=== PATIENT | female | born 1950 | race Caucasian/White ===

== ENCOUNTER 2021-09-24 17:41 | Inpatient (IN) | payer MEDICARE ==
[2021-09-24 18:46] LABS: #Basophils 0.1 thou/uL (0.0-0.2); #Eosinphils 0.4 thou/uL (0.0-0.7); #Lymphocytes 2.7 thou/uL (1.20-3.40); #Monocytes 0.5 thou/uL (0.11-0.59); #Neutrophils 6.2 thou/uL (1.40-6.50); %Basophils 0.7 % (0.0-1.0); %Eosinophils 3.9 % (0.0-10.0); %Lymphocytes 27.2 % (21.0-51.0); %Monocytes 4.9 % (0.0-10.0); %Neutrophils 63.4 % (42.0-75.0); Hemoglobin 16.1 g/dL (12.0-16.0); Mean Corpuscular HGB CONC 31.6 g/dL (32.0-36.0); Mean Corpuscular Hemoglobin 31.7 pg (27.0-31.0); Mean Platelet Volume 8.6 fL (7.4-10.4); Platelet Count 200 thou/uL (130-400); RBC Distribution Width 12.4 % (11.5-14.5); Red Blood Cell (RBC) Count 5.08 mill/uL (4.20-5.40); White Blood Cell (WBC) Count 9.8 thou/uL (4.8-10.8)
[2021-09-24 18:53] LABS: Bilirubin Negative (Negative); Blood, Urine 2+ (Negative); Clarity Extra Turbid (Clear); Glucose, Urine (Dipstick) Normal (Negative); Ketone, Urine Negative (Negative); Leukocyte 500 Leu/uL (Negative); Nitrite Negative (Negative); Protein, Urine (Dipstick) 70 mg/dL (Neg-Trace); RBC/HPF 0-3 HPF (0-3); Urobilinogen Normal mg/dL (Less than 2)
[2021-09-24 19:03] LABS: WBC/HPF 0-3 HPF (0-3)
[2021-09-24 19:04] LABS: Bacteria/HPF 4+ HPF (None Seen); Triple Phosphate Crystal Rare HPF (None Seen)
[2021-09-24 19:14] LABS: ALT (SGPT) 75 U/L (8-55); AST (SGOT) 39 U/L (5-34); Albumin 3.8 g/dL (3.4-4.8); Alkaline Phosphatase 135 U/L (40-110); Anion Gap 16 mmol/L (10-20); BUN (Urea Nitrogen) 28 mg/dL (9.8-20.1); Bilirubin, Total 0.7 mg/dL (0.2-1.2); Calc. Creatinine Clearance 0 mL/min (70-130); Calcium 9.4 mg/dL (7.8-10.44); Carbon Dioxide 21 mmol/L (23-31); Chloride 120 mmol/L (98-107); Estimated GFR 56; Globulin 3.4 g/dL (2.4-3.5); Glucose 107 mg/dL (83-110); Potassium 3.8 mmol/L (3.5-5.1); Protein, Total 7.2 g/dL (5.8-8.1); Sodium 153 mmol/L (136-145)
[2021-09-24] MEDS ORDERED: cefTRIAXone\\ROCEPHIN 1 GM VIAL ONE (19:36)
[2021-09-24] MEDS ORDERED: Acetaminophen 325 MG TAB PO PRN (20:55)
[2021-09-24] MEDS ORDERED: Mag-Al Plus 1200 MG/1200 MG/120 MG/30 ML UDCUP PO PRN (21:36)
[2021-09-24] MEDS ORDERED: Milk Of Magnesia 30 ML UDCUP PO PRN (21:36)
[2021-09-24] MEDS ORDERED: Loperamide HCl 2 MG CAP PO PRN (21:47)
[2021-09-24] MEDS: Famotidine 20 MG TAB PO SCH (22:13)
[2021-09-24 22:24] VITALS: BMI 23.5
[2021-09-25 04:13] LABS: #Eosinphils 0.4 thou/uL (0.0-0.7); #Lymphocytes 2.7 thou/uL (1.20-3.40); #Monocytes 0.7 thou/uL (0.11-0.59); #Neutrophils 5.2 thou/uL (1.40-6.50); %Basophils 0.3 % (0.0-1.0); %Eosinophils 4.3 % (0.0-10.0); %Lymphocytes 29.6 % (21.0-51.0); %Monocytes 7.8 % (0.0-10.0); %Neutrophils 58.1 % (42.0-75.0); Hemoglobin 14.1 g/dL (12.0-16.0); Mean Corpuscular HGB CONC 32.2 g/dL (32.0-36.0); Mean Corpuscular Hemoglobin 31.9 pg (27.0-31.0); Mean Corpuscular Volume 99.1 fL (78.0-98.0); Mean Platelet Volume 8.4 fL (7.4-10.4); Platelet Count 173 thou/uL (130-400); RBC Distribution Width 12.3 % (11.5-14.5); Red Blood Cell (RBC) Count 4.43 mill/uL (4.20-5.40)
[2021-09-25 04:32] LABS: Anion Gap 13 mmol/L (10-20); BUN (Urea Nitrogen) 24 mg/dL (9.8-20.1); Calc. Creatinine Clearance 58 mL/min (70-130); Calcium 8.9 mg/dL (7.8-10.44); Carbon Dioxide 25 mmol/L (23-31); Chloride 119 mmol/L (98-107); Estimated GFR 71; Glucose 100 mg/dL (83-110); Potassium 3.6 mmol/L (3.5-5.1); Sodium 153 mmol/L (136-145)
[2021-09-25] MEDS ORDERED: Dextrose 5% in Water 1,000 ML IV SCH (06:45)
[2021-09-25] MEDS ORDERED: Enoxaparin Sodium 30 MG/0.3 ML SYRINGE SC SCH (09:00)
[2021-09-25] MEDS: Benztropine 1 MG TAB PO SCH (09:49)
[2021-09-25] MEDS: Loratadine 10 MG TAB PO SCH (09:50)
[2021-09-25] MEDS: Ferrous Sulfate 325 MG TAB PO SCH ×2 (09:50→17:34)
[2021-09-25] MEDS: Atorvastatin Calcium 20 MG TAB PO SCH (09:50)
[2021-09-25] MEDS: OXcarbazepine 150 MG TAB PO SCH ×2 (09:50→21:46)
[2021-09-25] MEDS: Famotidine 20 MG TAB PO SCH ×2 (09:50→21:47)
[2021-09-25] MEDS: DULoxetine 60 MG CAP PO SCH (09:50)
[2021-09-25] MEDS: busPIRone HCl 10 MG TAB PO SCH ×3 (09:50→21:46)
[2021-09-25] MEDS: Timolol 0.5% Ophth Soln 5 ml Bottle EA EYE SCH ×2 (09:55→21:47)
[2021-09-25 10:27] LABS: Anion Gap 14 mmol/L (10-20); BUN (Urea Nitrogen) 21 mg/dL (9.8-20.1); Calc. Creatinine Clearance 60 mL/min (70-130); Calcium 8.8 mg/dL (7.8-10.44); Carbon Dioxide 22 mmol/L (23-31); Chloride 117 mmol/L (98-107); Estimated GFR 74; Glucose 89 mg/dL (83-110); Sodium 149 mmol/L (136-145)
[2021-09-25] MEDS: Dextrose 5% in Water 1,000 ML IV SCH ×2 (13:47→23:43)
[2021-09-25 15:46] LABS: Anion Gap 17 mmol/L (10-20); BUN (Urea Nitrogen) 20 mg/dL (9.8-20.1); Calc. Creatinine Clearance 63 mL/min (70-130); Calcium 8.8 mg/dL (7.8-10.44); Carbon Dioxide 18 mmol/L (23-31); Chloride 115 mmol/L (98-107); Estimated GFR 78; Glucose 88 mg/dL (83-110); Sodium 146 mmol/L (136-145)
[2021-09-25] MEDS ORDERED: cefTRIAXone\\ROCEPHIN 1 GM in Sodium Chloride 0.9% 100 ML IVPB SCH (21:00)
[2021-09-25] MEDS: cefTRIAXone\\ROCEPHIN 1 GM in Sodium Chloride 0.9% 100 ML IVPB SCH (21:34)
[2021-09-25] MEDS: RisperDAL Oral Solution 1 MG/ML UDCUP PO SCH (21:47)
[2021-09-25 22:16] LABS: Anion Gap 9 mmol/L (10-20); BUN (Urea Nitrogen) 21 mg/dL (9.8-20.1); Calc. Creatinine Clearance 57 mL/min (70-130); Calcium 8.8 mg/dL (7.8-10.44); Carbon Dioxide 27 mmol/L (23-31); Chloride 113 mmol/L (98-107); Estimated GFR 69; Glucose 93 mg/dL (83-110); Potassium 3.6 mmol/L (3.5-5.1); Sodium 145 mmol/L (136-145)
[2021-09-26 05:13] LABS: Anion Gap 11 mmol/L (10-20); BUN (Urea Nitrogen) 21 mg/dL (9.8-20.1); Calc. Creatinine Clearance 63 mL/min (70-130); Calcium 8.4 mg/dL (7.8-10.44); Carbon Dioxide 23 mmol/L (23-31); Chloride 111 mmol/L (98-107); Estimated GFR 78; Glucose 94 mg/dL (83-110); Potassium 3.2 mmol/L (3.5-5.1); Sodium 142 mmol/L (136-145)
[2021-09-26] MEDS: Ferrous Sulfate 325 MG TAB PO SCH ×2 (09:23→15:55)
[2021-09-26] MEDS: Atorvastatin Calcium 20 MG TAB PO SCH (09:24)
[2021-09-26] MEDS: busPIRone HCl 10 MG TAB PO SCH ×3 (09:25→20:23)
[2021-09-26] MEDS: Benztropine 1 MG TAB PO SCH (09:25)
[2021-09-26] MEDS: Famotidine 20 MG TAB PO SCH ×2 (09:26→20:23)
[2021-09-26] MEDS: DULoxetine 60 MG CAP PO SCH (09:26)
[2021-09-26] MEDS: Enoxaparin Sodium 40 MG/0.4 ML SYRINGE SC SCH (09:26)
[2021-09-26] MEDS: OXcarbazepine 150 MG TAB PO SCH ×2 (09:27→20:23)
[2021-09-26] MEDS: Loratadine 10 MG TAB PO SCH (09:27)
[2021-09-26] MEDS: Timolol 0.5% Ophth Soln 5 ml Bottle EA EYE SCH ×2 (09:32→20:34)
[2021-09-26] MEDS ORDERED: Potassium Chloride 20 MEQ TAB PO SCH (10:00)
[2021-09-26] MEDS: cefTRIAXone\\ROCEPHIN 1 GM in Sodium Chloride 0.9% 100 ML IVPB SCH (20:19)
[2021-09-26] MEDS: RisperDAL Oral Solution 1 MG/ML UDCUP PO SCH (20:22)
[2021-09-27 05:16] LABS: Anion Gap 13 mmol/L (10-20); BUN (Urea Nitrogen) 17 mg/dL (9.8-20.1); Calc. Creatinine Clearance 67 mL/min (70-130); Calcium 8.6 mg/dL (7.8-10.44); Carbon Dioxide 21 mmol/L (23-31); Chloride 112 mmol/L (98-107); Estimated GFR 84; Glucose 86 mg/dL (83-110); Potassium 3.7 mmol/L (3.5-5.1); Sodium 142 mmol/L (136-145)
[2021-09-27] MEDS: Timolol 0.5% Ophth Soln 5 ml Bottle EA EYE SCH ×2 (09:58→21:53)
[2021-09-27] MEDS: Loratadine 10 MG TAB PO SCH (09:58)
[2021-09-27] MEDS: Benztropine 1 MG TAB PO SCH (09:58)
[2021-09-27] MEDS: DULoxetine 60 MG CAP PO SCH (09:58)
[2021-09-27] MEDS: busPIRone HCl 10 MG TAB PO SCH ×3 (09:58→21:54)
[2021-09-27] MEDS: Ferrous Sulfate 325 MG TAB PO SCH ×2 (09:58→17:33)
[2021-09-27] MEDS: OXcarbazepine 150 MG TAB PO SCH ×2 (09:58→21:53)
[2021-09-27] MEDS: Atorvastatin Calcium 20 MG TAB PO SCH (09:58)
[2021-09-27] MEDS: Enoxaparin Sodium 40 MG/0.4 ML SYRINGE SC SCH (09:58)
[2021-09-27] MEDS ORDERED: Cefdinir 300 MG CAP PO SCH (10:30)
[2021-09-27] MEDS: Famotidine 20 MG TAB PO SCH ×2 (12:13→21:54)
[2021-09-27 14:29] LABS: #Eosinphils 0.3 thou/uL (0.0-0.7); #Lymphocytes 2.7 thou/uL (1.20-3.40); #Monocytes 0.5 thou/uL (0.11-0.59); #Neutrophils 3.7 thou/uL (1.40-6.50); %Basophils 0.5 % (0.0-1.0); %Eosinophils 3.6 % (0.0-10.0); %Neutrophils 51.9 % (42.0-75.0); Hemoglobin 13.1 g/dL (12.0-16.0); Mean Corpuscular Hemoglobin 32.7 pg (27.0-31.0); Mean Corpuscular Volume 99.1 fL (78.0-98.0); Mean Platelet Volume 8.9 fL (7.4-10.4); Platelet Count 154 thou/uL (130-400); RBC Distribution Width 12.2 % (11.5-14.5); Red Blood Cell (RBC) Count 4.02 mill/uL (4.20-5.40); White Blood Cell (WBC) Count 7.2 thou/uL (4.8-10.8)
[2021-09-27] MEDS: RisperDAL Oral Solution 1 MG/ML UDCUP PO SCH (21:55)
[2021-09-27] MEDS: Cefdinir 300 MG CAP PO SCH (21:57)
[2021-09-28 07:00] LABS: #Basophils 0.1 thou/uL (0.0-0.2); #Eosinphils 0.3 thou/uL (0.0-0.7); #Lymphocytes 2.3 thou/uL (1.20-3.40); #Monocytes 0.5 thou/uL (0.11-0.59); %Basophils 0.8 % (0.0-1.0); %Eosinophils 3.6 % (0.0-10.0); %Lymphocytes 32.5 % (21.0-51.0); %Monocytes 6.8 % (0.0-10.0); %Neutrophils 56.4 % (42.0-75.0); Hemoglobin 13.7 g/dL (12.0-16.0); Mean Corpuscular Hemoglobin 32.1 pg (27.0-31.0); Mean Corpuscular Volume 97.2 fL (78.0-98.0); Mean Platelet Volume 9.3 fL (7.4-10.4); Platelet Count 161 thou/uL (130-400); Red Blood Cell (RBC) Count 4.27 mill/uL (4.20-5.40); White Blood Cell (WBC) Count 7.1 thou/uL (4.8-10.8)
[2021-09-28 07:12] LABS: Anion Gap 12 mmol/L (10-20); BUN (Urea Nitrogen) 15 mg/dL (9.8-20.1); Calc. Creatinine Clearance 63 mL/min (70-130); Carbon Dioxide 23 mmol/L (23-31); Chloride 109 mmol/L (98-107); Estimated GFR 78; Glucose 84 mg/dL (83-110); Potassium 3.8 mmol/L (3.5-5.1); Sodium 140 mmol/L (136-145)
[2021-09-28] MEDS: Enoxaparin Sodium 40 MG/0.4 ML SYRINGE SC SCH (08:04)
[2021-09-28] MEDS: Timolol 0.5% Ophth Soln 5 ml Bottle EA EYE SCH ×2 (08:05→23:11)
[2021-09-28] MEDS: Famotidine 20 MG TAB PO SCH ×2 (08:06→23:10)
[2021-09-28] MEDS: DULoxetine 60 MG CAP PO SCH (08:06)
[2021-09-28] MEDS: Benztropine 1 MG TAB PO SCH (08:06)
[2021-09-28] MEDS: Atorvastatin Calcium 20 MG TAB PO SCH (08:06)
[2021-09-28] MEDS: Cefdinir 300 MG CAP PO SCH ×2 (08:06→23:10)
[2021-09-28] MEDS: Ferrous Sulfate 325 MG TAB PO SCH ×2 (08:07→16:01)
[2021-09-28] MEDS: Loratadine 10 MG TAB PO SCH (08:07)
[2021-09-28] MEDS: busPIRone HCl 10 MG TAB PO SCH ×3 (08:07→23:10)
[2021-09-28] MEDS ORDERED: Polyethylene Glycol 3350 17 GM Packet PO SCH (10:15)
[2021-09-28] MEDS: OXcarbazepine 150 MG TAB PO SCH ×2 (12:32→23:10)
[2021-09-28] MEDS: Docusate 100 MG CAP PO SCH (23:10)
[2021-09-28] MEDS: RisperDAL Oral Solution 1 MG/ML UDCUP PO SCH (23:11)
[2021-09-29 07:46] LABS: Anion Gap 14 mmol/L (10-20); BUN (Urea Nitrogen) 16 mg/dL (9.8-20.1); Calc. Creatinine Clearance 60 mL/min (70-130); Calcium 9.1 mg/dL (7.8-10.44); Carbon Dioxide 23 mmol/L (23-31); Chloride 108 mmol/L (98-107); Estimated GFR 74; Glucose 87 mg/dL (83-110); Potassium 3.7 mmol/L (3.5-5.1); Sodium 141 mmol/L (136-145)
[2021-09-29] MEDS: Docusate 100 MG CAP PO SCH (08:31)
[2021-09-29] MEDS: DULoxetine 60 MG CAP PO SCH (08:31)
[2021-09-29] MEDS: Enoxaparin Sodium 40 MG/0.4 ML SYRINGE SC SCH (08:31)
[2021-09-29] MEDS: Benztropine 1 MG TAB PO SCH (08:31)
[2021-09-29] MEDS: Ferrous Sulfate 325 MG TAB PO SCH ×2 (08:31→16:48)
[2021-09-29] MEDS: Cefdinir 300 MG CAP PO SCH (08:31)
[2021-09-29] MEDS: Famotidine 20 MG TAB PO SCH (08:31)
[2021-09-29] MEDS: Atorvastatin Calcium 20 MG TAB PO SCH (08:31)
[2021-09-29] MEDS: Loratadine 10 MG TAB PO SCH (08:31)
[2021-09-29] MEDS: busPIRone HCl 10 MG TAB PO SCH ×2 (08:31→15:03)
[2021-09-29] MEDS: Timolol 0.5% Ophth Soln 5 ml Bottle EA EYE SCH (08:32)
[2021-09-29] MEDS ORDERED: Polyethylene Glycol 3350 17 GM Packet PO SCH (09:00)
[2021-09-29] MEDS: OXcarbazepine 150 MG TAB PO SCH (12:30)
[2021-09-29 15:52] VITALS: BP 117/85; TEMP 97.7
== END 2021-09-29 17:05 | DRG 640 ==
LOC: ERS 17:41 → 2NO 20:15 → OBSVTOIN 20:15 → T4-A 09-27 20:14
PROVIDERS: ADMIT Student in an Organized Health Care Education/Training Program; ATTEND Student in an Organized Health Care Education/Training Program
PROC: 8E0ZXY6 Isolation (ICD-10-PCS; principal; 2021-09-24)
DX: E87.0 Hyperosmolality and hypernatremia (principal); L89.153 Pressure ulcer of sacral region, stage 3; U07.1 COVID-19; G93.41 Metabolic encephalopathy; N39.0 Urinary tract infection, site not specified; E87.2 Acidosis; G30.9 Alzheimer's disease, unspecified; L98.419 Non-pressure chronic ulcer of buttock with unspecified severity; F02.80 Dementia in other diseases classified elsewhere, unspecified severity, without behavioral disturbance, psychotic disturbance, mood disturbance, and anxiety; Z66 Do not resuscitate; E87.8 Other disorders of electrolyte and fluid balance, not elsewhere classified; E87.6 Hypokalemia; K59.00 Constipation, unspecified; Z88.2 Allergy status to sulfonamides; Z88.1 Allergy status to other antibiotic agents; Z88.8 Allergy status to other drugs, medicaments and biological substances; Z79.899 Other long term (current) drug therapy
CPT/HCPCS: 36415; 70450; 71045; 80048; 80053; 81003; 81015; 84443; 85025; 87040; 87077; 87086; 87186; 93005; 96374; J0696; J1650; J3490; J7070; U0003; U0005

== ENCOUNTER 2021-11-29 19:31 | Inpatient (IN) | payer MEDICARE ==
[~2021-11-29 19:31] MED LIST: Iopamidol-370 76% 500 ML 1 ML ONE
[2021-11-29 20:35] LABS: #Basophils 0.1 thou/uL (0.0-0.2); #Eosinphils 0.1 thou/uL (0.0-0.7); #Lymphocytes 2.1 thou/uL (1.20-3.40); #Monocytes 1.1 thou/uL (0.11-0.59); #Neutrophils 15.3 thou/uL (1.40-6.50); %Basophils 0.3 % (0.0-1.0); %Eosinophils 0.7 % (0.0-10.0); %Lymphocytes 11.2 % (21.0-51.0); %Neutrophils 81.8 % (42.0-75.0); Hemoglobin 15.9 g/dL (12.0-16.0); Mean Corpuscular HGB CONC 31.7 g/dL (32.0-36.0); Mean Corpuscular Hemoglobin 31.2 pg (27.0-31.0); Mean Corpuscular Volume 98.7 fL (78.0-98.0); Mean Platelet Volume 8.1 fL (7.4-10.4); Platelet Count 322 thou/uL (130-400); RBC Distribution Width 12.3 % (11.5-14.5); Red Blood Cell (RBC) Count 5.08 mill/uL (4.20-5.40); White Blood Cell (WBC) Count 18.7 thou/uL (4.8-10.8)
[2021-11-29 20:41] LABS: Bacteria/HPF 4+ HPF (None Seen); Bilirubin 1+ (Negative); Blood, Urine Negative (Negative); Clarity Turbid (Clear); Glucose, Urine (Dipstick) Normal (Negative); Ketone, Urine Trace mg/dL (Negative); Leukocyte 500 Leu/uL (Negative); Nitrite Negative (Negative); Protein, Urine (Dipstick) 200 mg/dL (Neg-Trace); RBC/HPF 0-3 HPF (0-3); Specific Gravity, Urine 1.031 (1.002-1.036); Squamous Epithelial None Seen HPF (0-3); WBC/HPF Greater than 50 HPF (0-3); pH, Urine 7.5 (5.0-9.0)
[2021-11-29 21:02] LABS: ALT (SGPT) 16 U/L (8-55); AST (SGOT) 16 U/L (5-34); Alkaline Phosphatase 117 U/L (40-110); Anion Gap 19 mmol/L (10-20); BUN (Urea Nitrogen) 35 mg/dL (9.8-20.1); Bilirubin, Total 0.7 mg/dL (0.2-1.2); Calc. Creatinine Clearance 0 mL/min (70-130); Calcium 9.6 mg/dL (7.8-10.44); Carbon Dioxide 20 mmol/L (23-31); Chloride 108 mmol/L (98-107); Estimated GFR 48; Globulin 3.5 g/dL (2.4-3.5); Glucose 135 mg/dL (83-110); Potassium 4.1 mmol/L (3.5-5.1); Protein, Total 7.5 g/dL (5.8-8.1); Sodium 143 mmol/L (136-145)
[2021-11-29] MEDS ORDERED: Piperacillin/Tazobactam 4.5 GM VIAL ONE (22:22)
[2021-11-29] MEDS ORDERED: Acetaminophen 650 MG Suppository PR PRN (23:32)
[2021-11-29] MEDS ORDERED: Ondansetron PF 4 MG/2 ML Vial IVP PRN (23:32)
[2021-11-29] MEDS ORDERED: Ondansetron ODT 4 MG TAB PO PRN (23:32)
[2021-11-30 00:15] LABS: Lactic Acid 1.8 mmol/L (0.5-2.2)
[2021-11-30 01:39] VITALS: BMI 20.1
[2021-11-30] MEDS: Sodium Chloride 0.9% 1,000 ML IV SCH ×2 (01:53→16:33)
[2021-11-30] MEDS: Piperacillin/Tazobactam 3.375 GM in Sodium Chloride 0.9% 100 ML IVPB SCH ×3 (04:34→20:43)
[2021-11-30 04:59] LABS: #Basophils 0.2 thou/uL (0.0-0.2); #Lymphocytes 1.5 thou/uL (1.20-3.40); #Neutrophils 12.1 thou/uL (1.40-6.50); %Basophils 1.1 % (0.0-1.0); %Eosinophils 0.2 % (0.0-10.0); %Lymphocytes 9.8 % (21.0-51.0); Hemoglobin 12.7 g/dL (12.0-16.0); Mean Corpuscular HGB CONC 32.6 g/dL (32.0-36.0); Mean Corpuscular Hemoglobin 31.4 pg (27.0-31.0); Mean Corpuscular Volume 96.4 fL (78.0-98.0); Mean Platelet Volume 10.5 fL (7.4-10.4); Platelet Count 205 thou/uL (130-400); RBC Distribution Width 15.4 % (11.5-14.5); Red Blood Cell (RBC) Count 4.03 mill/uL (4.20-5.40); White Blood Cell (WBC) Count 14.8 thou/uL (4.8-10.8)
[2021-11-30 05:13] LABS: Anion Gap 13 mmol/L (10-20); BUN (Urea Nitrogen) 29 mg/dL (9.8-20.1); Calc. Creatinine Clearance 52 mL/min (70-130); Carbon Dioxide 22 mmol/L (23-31); Chloride 113 mmol/L (98-107); Potassium 3.6 mmol/L (3.5-5.1); Sodium 144 mmol/L (136-145)
[2021-11-30 05:14] LABS: Calcium 8.7 mg/dL (7.8-10.44); Estimated GFR 73; Glucose 112 mg/dL (83-110)
[2021-11-30] MEDS: Enoxaparin Sodium 40 MG/0.4 ML SYRINGE SC SCH (09:45)
[2021-11-30] MEDS ORDERED: Non-Formulary Item 1 EACH (Clonazepam [Clonazepam] 0.25 MG Tab.Rapdis) PO PRN (10:32)
[2021-11-30] MEDS: Ferrous Sulfate 325 MG TAB PO SCH (16:53)
[2021-11-30] MEDS: busPIRone HCl 10 MG TAB PO SCH ×2 (16:53→20:47)
[2021-11-30] MEDS: Benztropine 1 MG TAB PO SCH (20:45)
[2021-11-30] MEDS: Acetaminophen 325 MG TAB PO PRN (20:47)
[2021-11-30] MEDS: Atorvastatin Calcium 20 MG TAB PO SCH (20:47)
[2021-11-30] MEDS: OXcarbazepine 150 MG TAB PO SCH (20:47)
[2021-11-30] MEDS: DULoxetine 60 MG CAP PO SCH (20:47)
[2021-12-01] MEDS: Sodium Chloride 0.9% 1,000 ML IV SCH (03:56)
[2021-12-01] MEDS: Piperacillin/Tazobactam 3.375 GM in Sodium Chloride 0.9% 100 ML IVPB SCH ×3 (03:56→20:34)
[2021-12-01 04:43] LABS: #Eosinphils 0.3 thou/uL (0.0-0.7); #Lymphocytes 1.7 thou/uL (1.20-3.40); #Monocytes 0.7 thou/uL (0.11-0.59); #Neutrophils 7.1 thou/uL (1.40-6.50); %Basophils 0.3 % (0.0-1.0); %Eosinophils 2.9 % (0.0-10.0); %Lymphocytes 17.3 % (21.0-51.0); %Monocytes 6.8 % (0.0-10.0); %Neutrophils 72.9 % (42.0-75.0); Hemoglobin 12.5 g/dL (12.0-16.0); Mean Corpuscular HGB CONC 32.8 g/dL (32.0-36.0); Mean Corpuscular Hemoglobin 31.9 pg (27.0-31.0); Mean Corpuscular Volume 97.3 fL (78.0-98.0); Mean Platelet Volume 7.9 fL (7.4-10.4); Platelet Count 184 thou/uL (130-400); RBC Distribution Width 12.1 % (11.5-14.5); Red Blood Cell (RBC) Count 3.92 mill/uL (4.20-5.40); White Blood Cell (WBC) Count 9.7 thou/uL (4.8-10.8)
[2021-12-01 05:10] LABS: Anion Gap 10 mmol/L (10-20); BUN (Urea Nitrogen) 21 mg/dL (9.8-20.1); Calc. Creatinine Clearance 57 mL/min (70-130); Calcium 8.8 mg/dL (7.8-10.44); Carbon Dioxide 22 mmol/L (23-31); Chloride 115 mmol/L (98-107); Estimated GFR 82; Glucose 91 mg/dL (83-110); Potassium 3.2 mmol/L (3.5-5.1); Sodium 144 mmol/L (136-145)
[2021-12-01] MEDS: Enoxaparin Sodium 40 MG/0.4 ML SYRINGE SC SCH (09:12)
[2021-12-01] MEDS: OXcarbazepine 150 MG TAB PO SCH ×2 (09:14→21:08)
[2021-12-01] MEDS: Ferrous Sulfate 325 MG TAB PO SCH ×2 (09:14→15:32)
[2021-12-01] MEDS: busPIRone HCl 10 MG TAB PO SCH ×3 (09:15→20:34)
[2021-12-01] MEDS ORDERED: Sodium Chloride 0.9% 1,000 ML IV SCH (16:15)
[2021-12-01] MEDS: Benztropine 1 MG TAB PO SCH (20:34)
[2021-12-01] MEDS: DULoxetine 60 MG CAP PO SCH (20:34)
[2021-12-01] MEDS: Atorvastatin Calcium 20 MG TAB PO SCH (20:35)
[2021-12-02] MEDS: Piperacillin/Tazobactam 3.375 GM in Sodium Chloride 0.9% 100 ML IVPB SCH ×2 (03:17→13:45)
[2021-12-02] MEDS ORDERED: Lice Shampoo 120 ML BOT TOP SCH (06:00)
[2021-12-02] MEDS: Ferrous Sulfate 325 MG TAB PO SCH ×2 (08:21→17:26)
[2021-12-02] MEDS: Enoxaparin Sodium 40 MG/0.4 ML SYRINGE SC SCH (08:21)
[2021-12-02] MEDS: busPIRone HCl 10 MG TAB PO SCH ×3 (08:21→20:50)
[2021-12-02] MEDS: OXcarbazepine 150 MG TAB PO SCH ×2 (08:22→20:50)
[2021-12-02] MEDS ORDERED: Polyethylene Glycol 3350 17 GM Packet PO PRN (09:18)
[2021-12-02] MEDS ORDERED: Docusate 100 MG CAP PO PRN (09:18)
[2021-12-02] MEDS ORDERED: Polyethylene Glycol 3350 17 GM Packet PO SCH (09:30)
[2021-12-02] MEDS ORDERED: Docusate 100 MG CAP PO SCH (09:30)
[2021-12-02] MEDS: Potassium Chloride 20 MEQ in Premix Bag 1 BAG IVPB SCH ×2 (10:50→14:31)
[2021-12-02] MEDS ORDERED: Piperacillin/Tazobactam 3.375 GM in Sodium Chloride 0.9% 100 ML IVPB SCH (12:36)
[2021-12-02] MEDS: Atorvastatin Calcium 20 MG TAB PO SCH (20:50)
[2021-12-02] MEDS: Ciprofloxacin 500 MG TAB PO SCH (20:50)
[2021-12-02] MEDS: Benztropine 1 MG TAB PO SCH (20:50)
[2021-12-02] MEDS: DULoxetine 60 MG CAP PO SCH (20:50)
[2021-12-02] MEDS: Acetaminophen 325 MG TAB PO PRN (20:51)
[2021-12-03 05:56] LABS: Hemoglobin 12.3 g/dL (12.0-16.0); Mean Corpuscular HGB CONC 33.3 g/dL (32.0-36.0); Mean Corpuscular Hemoglobin 31.7 pg (27.0-31.0); Mean Corpuscular Volume 95.1 fL (78.0-98.0); Platelet Count 177 thou/uL (130-400); RBC Distribution Width 11.5 % (11.5-14.5); Red Blood Cell (RBC) Count 3.89 mill/uL (4.20-5.40); White Blood Cell (WBC) Count 7.6 thou/uL (4.8-10.8)
[2021-12-03 06:35] LABS: Anion Gap 11 mmol/L (10-20); BUN (Urea Nitrogen) 12 mg/dL (9.8-20.1); Calc. Creatinine Clearance 68 mL/min (70-130); Calcium 8.9 mg/dL (7.8-10.44); Carbon Dioxide 22 mmol/L (23-31); Chloride 108 mmol/L (98-107); Estimated GFR 93; Glucose 90 mg/dL (83-110); Potassium 3.1 mmol/L (3.5-5.1); Sodium 138 mmol/L (136-145)
[2021-12-03] MEDS: Ciprofloxacin 500 MG TAB PO SCH (06:39)
[2021-12-03 08:10] VITALS: BP 148/63; TEMP 97.7
[2021-12-03] MEDS: Enoxaparin Sodium 40 MG/0.4 ML SYRINGE SC SCH (08:46)
[2021-12-03] MEDS: Ferrous Sulfate 325 MG TAB PO SCH (08:46)
[2021-12-03] MEDS: Potassium Chloride 20 MEQ in Premix Bag 1 BAG IVPB SCH ×2 (08:46→12:04)
[2021-12-03] MEDS: OXcarbazepine 150 MG TAB PO SCH (08:46)
[2021-12-03] MEDS: busPIRone HCl 10 MG TAB PO SCH ×2 (08:46→16:00)
[2021-12-03 08:47] LABS: Magnesium 1.6 mg/dL (1.6-2.6)
== END 2021-12-03 17:25 | DRG 871 ==
LOC: ERS 19:31 → 2NO 23:05 → T4-B 12-01 18:42
PROVIDERS: ADMIT Student in an Organized Health Care Education/Training Program; ATTEND Internal Medicine
PROC: 3E03329 Introduction of Other Anti-infective into Peripheral Vein, Percutaneous Approach (ICD-10-PCS; principal; 2021-11-29)
PROC: 8E0ZXY6 Isolation (ICD-10-PCS; 2021-12-02)
DX: A41.59 Other Gram-negative sepsis (principal); G93.41 Metabolic encephalopathy; K56.609 Unspecified intestinal obstruction, unspecified as to partial versus complete obstruction; N39.0 Urinary tract infection, site not specified; E87.2 Acidosis; N17.9 Acute kidney failure, unspecified; E78.5 Hyperlipidemia, unspecified; F32.A Depression, unspecified; K52.89 Other specified noninfective gastroenteritis and colitis; G30.9 Alzheimer's disease, unspecified; K59.00 Constipation, unspecified; F02.80 Dementia in other diseases classified elsewhere, unspecified severity, without behavioral disturbance, psychotic disturbance, mood disturbance, and anxiety; Z88.2 Allergy status to sulfonamides; Z88.1 Allergy status to other antibiotic agents; Z88.8 Allergy status to other drugs, medicaments and biological substances; Z79.899 Other long term (current) drug therapy
CPT/HCPCS: 36415; 36416; 51701; 70450; 71045; 74018; 74177; 80048; 80053; 81003; 81015; 83605; 83735; 84484; 85025; 85027; 87040; 87077; 87086; 87186; 93005; 94640; 96361; 96365; J1650; J2543; J3480; J3490; J7050; J7620; Q9967

== ENCOUNTER 2021-12-29 14:12 | Emergency (ER) | payer MEDICARE ==
[2021-12-29 15:05] LABS: #Basophils 0.2 thou/uL (0.0-0.2); #Lymphocytes 0.7 thou/uL (1.20-3.40); #Monocytes 0.6 thou/uL (0.11-0.59); #Neutrophils 4.2 thou/uL (1.40-6.50); %Basophils 2.7 % (0.0-1.0); %Eosinophils 0.6 % (0.0-10.0); %Lymphocytes 12.3 % (21.0-51.0); %Monocytes 10.7 % (0.0-10.0); %Neutrophils 73.7 % (42.0-75.0); Mean Corpuscular HGB CONC 31.5 g/dL (32.0-36.0); Mean Corpuscular Hemoglobin 30.1 pg (27.0-31.0); Mean Corpuscular Volume 95.5 fL (78.0-98.0); Mean Platelet Volume 7.6 fL (7.4-10.4); Platelet Count 204 thou/uL (130-400); Red Blood Cell (RBC) Count 4.65 mill/uL (4.20-5.40); White Blood Cell (WBC) Count 5.7 thou/uL (4.8-10.8)
[2021-12-29 15:30] LABS: ALT (SGPT) 18 U/L (8-55); AST (SGOT) 20 U/L (5-34); Albumin 3.9 g/dL (3.4-4.8); Alkaline Phosphatase 117 U/L (40-110); Anion Gap 12 mmol/L (10-20); BUN (Urea Nitrogen) 25 mg/dL (9.8-20.1); Bilirubin, Total 0.8 mg/dL (0.2-1.2); CK (CPK) 59 U/L (29-168); Calc. Creatinine Clearance 0 mL/min (70-130); Calcium 9.7 mg/dL (7.8-10.44); Carbon Dioxide 25 mmol/L (23-31); Chloride 110 mmol/L (98-107); Estimated GFR 74; Globulin 3.6 g/dL (2.4-3.5); Glucose 103 mg/dL (83-110); Potassium 3.7 mmol/L (3.5-5.1); Protein, Total 7.5 g/dL (5.8-8.1); Sodium 143 mmol/L (136-145)
[2021-12-29 15:56] LABS: Bacteria/HPF None Seen HPF (None Seen); Bilirubin Negative (Negative); Blood, Urine 2+ (Negative); Clarity Clear (Clear); Glucose, Urine (Dipstick) Normal (Negative); Ketone, Urine Negative (Negative); Leukocyte Negative Leu/uL (Negative); Nitrite Negative (Negative); Protein, Urine (Dipstick) 20 mg/dL (Neg-Trace); Specific Gravity, Urine 1.031 (1.002-1.036); Squamous Epithelial 0-3 HPF (0-3); WBC/HPF 0-3 HPF (0-3); pH, Urine 5.5 (5.0-9.0)
[2021-12-29 17:29] LABS: SARS-CoV-2 NAA Rapid Test Not Detected (NotDetected)
== END 2021-12-29 17:00 ==
LOC: ERS 14:12
DX: G30.9 Alzheimer's disease, unspecified (principal); F02.80 Dementia in other diseases classified elsewhere, unspecified severity, without behavioral disturbance, psychotic disturbance, mood disturbance, and anxiety; E86.0 Dehydration; Z20.822 Contact with and (suspected) exposure to COVID-19
CPT/HCPCS: 0240U; 51701; 80053; 82550; 85025; 99284; 36415; 81003; 81015

== ENCOUNTER 2022-01-09 20:09 | Inpatient (IN) | payer MEDICARE ==
[2022-01-09 20:39] LABS: #Eosinphils 0.3 thou/uL (0.0-0.7); #Lymphocytes 2.9 thou/uL (1.20-3.40); #Monocytes 0.9 thou/uL (0.11-0.59); #Neutrophils 5.8 thou/uL (1.40-6.50); %Basophils 0.5 % (0.0-1.0); %Eosinophils 2.8 % (0.0-10.0); %Lymphocytes 29.6 % (21.0-51.0); %Monocytes 8.9 % (0.0-10.0); %Neutrophils 58.2 % (42.0-75.0); Hemoglobin 13.8 g/dL (12.0-16.0); Mean Corpuscular HGB CONC 32.5 g/dL (32.0-36.0); Mean Corpuscular Hemoglobin 30.7 pg (27.0-31.0); Mean Corpuscular Volume 94.6 fl (78.0-98.0); Mean Platelet Volume 7.5 fL (7.4-10.4); Platelet Count 316 thou/uL (130-400); RBC Distribution Width 11.8 % (11.5-14.5); Red Blood Cell (RBC) Count 4.48 mill/uL (4.20-5.40); White Blood Cell (WBC) Count 9.9 thou/uL (4.8-10.8)
[2022-01-09 21:01] LABS: ALT (SGPT) 14 U/L (8-55); AST (SGOT) 17 U/L (5-34); Albumin 3.5 g/dL (3.4-4.8); Alkaline Phosphatase 98 U/L (40-110); Anion Gap 14 mmol/L (10-20); BUN (Urea Nitrogen) 29 mg/dL (9.8-20.1); Bilirubin, Total 0.7 mg/dL (0.2-1.2); Calc. Creatinine Clearance 0 mL/min (70-130); Calcium 9.4 mg/dL (7.8-10.44); Carbon Dioxide 28 mmol/L (23-31); Chloride 108 mmol/L (98-107); Estimated GFR 74; Globulin 3.3 g/dL (2.4-3.5); Glucose 96 mg/dL (83-110); Protein, Total 6.8 g/dL (5.8-8.1); Sodium 147 mmol/L (136-145)
[2022-01-09 21:16] LABS: Potassium 2.9 mmol/L (3.5-5.1)
[2022-01-09] MEDS ORDERED: Magnesium 2 GM/50 ML BAG (IN WATER) ONE (21:42)
[2022-01-09] MEDS ORDERED: NS 0.9% w/ 40 MEQ KCL 1,000 ML IV SCH (21:45)
[2022-01-09 22:09] LABS: Anion Gap 15 mmol/L (10-20); BUN (Urea Nitrogen) 29 mg/dL (9.8-20.1); Calc. Creatinine Clearance 0 mL/min (70-130); Calcium 9.3 mg/dL (7.8-10.44); Carbon Dioxide 26 mmol/L (23-31); Chloride 112 mmol/L (98-107); Estimated GFR 75; Glucose 89 mg/dL (83-110); Potassium 3.3 mmol/L (3.5-5.1); Sodium 150 mmol/L (136-145)
[2022-01-09 23:27] LABS: Bacteria/HPF None Seen HPF (None Seen); Bilirubin Negative (Negative); Blood, Urine Negative (Negative); Clarity Clear (Clear); Glucose, Urine (Dipstick) Normal (Negative); Ketone, Urine 10 mg/dL (Negative); Leukocyte 75 Leu/uL (Negative); Nitrite Negative (Negative); Protein, Urine (Dipstick) 20 mg/dL (Neg-Trace); RBC/HPF None Seen HPF (0-3); Specific Gravity, Urine 1.025 (1.002-1.036); Squamous Epithelial None Seen HPF (0-3)
[2022-01-09] MEDS ORDERED: Acetaminophen 325 MG TAB PO PRN (23:45)
[2022-01-09] MEDS ORDERED: Ondansetron PF 4 MG/2 ML Vial IVP PRN (23:45)
[2022-01-09] MEDS ORDERED: Ondansetron ODT 4 MG TAB SL PRN (23:45)
[2022-01-09] MEDS ORDERED: Acetaminophen 650 MG Suppository PR PRN (23:54)
[2022-01-10 01:36] LABS: Magnesium 2.1 mg/dL (1.6-2.6); Phosphorus 3.3 mg/dL (2.3-4.7)
[2022-01-10 04:44] LABS: #Eosinphils 0.2 thou/uL (0.0-0.7); #Lymphocytes 2.2 thou/uL (1.20-3.40); #Monocytes 0.6 thou/uL (0.11-0.59); #Neutrophils 4.1 thou/uL (1.40-6.50); %Basophils 0.5 % (0.0-1.0); %Eosinophils 3.4 % (0.0-10.0); %Lymphocytes 30.6 % (21.0-51.0); %Monocytes 8.4 % (0.0-10.0); %Neutrophils 57.1 % (42.0-75.0); Hemoglobin 13.4 g/dL (12.0-16.0); Mean Corpuscular HGB CONC 32.2 g/dL (32.0-36.0); Mean Corpuscular Hemoglobin 30.9 pg (27.0-31.0); Mean Platelet Volume 7.6 fL (7.4-10.4); Platelet Count 263 thou/uL (130-400); RBC Distribution Width 11.8 % (11.5-14.5); Red Blood Cell (RBC) Count 4.34 mill/uL (4.20-5.40); White Blood Cell (WBC) Count 7.2 thou/uL (4.8-10.8)
[2022-01-10 04:59] LABS: Anion Gap 9 mmol/L (10-20); BUN (Urea Nitrogen) 23 mg/dL (9.8-20.1); Calc. Creatinine Clearance 66 mL/min (70-130); Calcium 8.7 mg/dL (7.8-10.44); Carbon Dioxide 25 mmol/L (23-31); Chloride 116 mmol/L (98-107); Estimated GFR 92; Glucose 98 mg/dL (83-110); Potassium 3.2 mmol/L (3.5-5.1); Sodium 147 mmol/L (136-145)
[2022-01-10] MEDS: Potassium Chloride 40 MEQ in Sodium Chloride 0.45% 1,000 ML IV SCH ×2 (05:43→10:32)
[2022-01-10] MEDS ORDERED: Potassium Chloride 20 MEQ in Premix Bag 2 BAG IVPB SCH ×2 (08:15→09:00)
[2022-01-10] MEDS ORDERED: Potassium Chloride 20 MEQ/100 ML PREMIX BAG ONE (09:42)
[2022-01-10] MEDS: Potassium Chloride 20 MEQ in Premix Bag 1 BAG IVPB SCH ×2 (09:50→11:41)
[2022-01-10 09:55] LABS: Amphetamine Not Detected (NotDetected); Barbiturates Screen Not Detected (NotDetected); Benzodiazepine Screen Not Detected (NotDetected); Cocaine Metabolite Screen Not Detected (NotDetected); Methadone Not Detected (NotDetected); Methamphetamine Not Detected (NotDetected); Opiate Screen Not Detected (NotDetected); Oxycodone Screen Not Detected (NotDetected); Phencyclidine (PCP) Not Detected (NotDetected); THC/Cannabinoid Screen Not Detected (NotDetected); Tricyclic Screen Not Detected (NotDetected)
[2022-01-10 10:14] LABS: Acetaminophen Less than 10.0 mcg/mL (10.0-30.0); Anion Gap 12 mmol/L (10-20); BUN (Urea Nitrogen) 22 mg/dL (9.8-20.1); Calc. Creatinine Clearance 67 mL/min (70-130); Calcium 8.8 mg/dL (7.8-10.44); Carbon Dioxide 23 mmol/L (23-31); Chloride 116 mmol/L (98-107); Estimated GFR 93; Glucose 102 mg/dL (83-110); Potassium 3.3 mmol/L (3.5-5.1); Salicylate Less than 8.0 mg/dL (15.0-30.0); Sodium 148 mmol/L (136-145)
[2022-01-10] MEDS ORDERED: Pantoprazole 40 MG VIAL IVP SCH ×2 (10:38→10:45)
[2022-01-10] MEDS ORDERED: Pantoprazole 40 MG VIAL ONE (11:01)
[2022-01-10 11:56] VITALS: BMI 23.5
[2022-01-10] MEDS ORDERED: Potassium Chloride 40 MEQ in Dextrose 5% in Water 1,000 ML IV SCH (12:00)
[2022-01-10] MEDS ORDERED: FLU VACC QS2022-23(65YR UP)/PF 240 MCG/0.7 ML SYRINGE IM ONE (12:30)
[2022-01-10 16:38] LABS: Sodium 147 mmol/L (136-145)
[2022-01-11 04:43] LABS: #Basophils 0.1 thou/uL (0.0-0.2); #Eosinphils 0.3 thou/uL (0.0-0.7); #Lymphocytes 1.5 thou/uL (1.20-3.40); #Monocytes 0.8 thou/uL (0.11-0.59); #Neutrophils 7.8 thou/uL (1.40-6.50); %Basophils 0.5 % (0.0-1.0); %Eosinophils 2.8 % (0.0-10.0); %Lymphocytes 14.2 % (21.0-51.0); %Monocytes 7.3 % (0.0-10.0); %Neutrophils 75.1 % (42.0-75.0); Hemoglobin 13.7 g/dL (12.0-16.0); Mean Corpuscular HGB CONC 31.6 g/dL (32.0-36.0); Mean Corpuscular Volume 94.8 fl (78.0-98.0); Mean Platelet Volume 7.6 fL (7.4-10.4); Platelet Count 298 thou/uL (130-400); RBC Distribution Width 11.9 % (11.5-14.5); Red Blood Cell (RBC) Count 4.57 mill/uL (4.20-5.40); White Blood Cell (WBC) Count 10.4 thou/uL (4.8-10.8)
[2022-01-11 05:01] LABS: Anion Gap 12 mmol/L (10-20); BUN (Urea Nitrogen) 14 mg/dL (9.8-20.1); Calc. Creatinine Clearance 75 mL/min (70-130); Calcium 9.3 mg/dL (7.8-10.44); Carbon Dioxide 21 mmol/L (23-31); Chloride 110 mmol/L (98-107); Estimated GFR 95; Glucose 105 mg/dL (83-110); Potassium 3.3 mmol/L (3.5-5.1); Sodium 140 mmol/L (136-145)
[2022-01-11] MEDS: Pantoprazole 40 MG VIAL IVP SCH (08:48)
[2022-01-11] MEDS ORDERED: Dextrose 5% in Water 1,000 ML IV SCH (13:30)
[2022-01-11] MEDS ORDERED: clonazePAM 0.5 MG TAB PO PRN (13:44)
[2022-01-11] MEDS: busPIRone HCl 10 MG TAB PO SCH ×2 (14:57→21:01)
[2022-01-11] MEDS ORDERED: Benztropine 1 MG TAB PO SCH (21:00)
[2022-01-11] MEDS ORDERED: DULoxetine 60 MG CAP PO SCH (21:00)
[2022-01-11] MEDS: OXcarbazepine 150 MG TAB PO SCH (21:01)
[2022-01-11] MEDS: Timolol 0.5% Ophth Soln 5 ml Bottle EA EYE SCH (23:48)
[2022-01-12 04:40] LABS: #Eosinphils 0.2 thou/uL (0.0-0.7); #Lymphocytes 1.9 thou/uL (1.20-3.40); #Monocytes 0.7 thou/uL (0.11-0.59); #Neutrophils 4.1 thou/uL (1.40-6.50); %Basophils 0.4 % (0.0-1.0); %Eosinophils 2.6 % (0.0-10.0); %Lymphocytes 26.9 % (21.0-51.0); %Monocytes 10.6 % (0.0-10.0); %Neutrophils 59.5 % (42.0-75.0); Hemoglobin 12.7 g/dL (12.0-16.0); Mean Corpuscular HGB CONC 33.3 g/dL (32.0-36.0); Mean Corpuscular Hemoglobin 31.1 pg (27.0-31.0); Mean Corpuscular Volume 93.3 fl (78.0-98.0); Mean Platelet Volume 7.7 fL (7.4-10.4); Platelet Count 260 thou/uL (130-400); RBC Distribution Width 11.7 % (11.5-14.5); Red Blood Cell (RBC) Count 4.07 mill/uL (4.20-5.40)
[2022-01-12 04:58] LABS: Anion Gap 10 mmol/L (10-20); BUN (Urea Nitrogen) 18 mg/dL (9.8-20.1); Calc. Creatinine Clearance 61 mL/min (70-130); Calcium 9.2 mg/dL (7.8-10.44); Carbon Dioxide 23 mmol/L (23-31); Chloride 111 mmol/L (98-107); Estimated GFR 83; Glucose 106 mg/dL (83-110); Potassium 3.2 mmol/L (3.5-5.1); Sodium 141 mmol/L (136-145)
[2022-01-12] MEDS ORDERED: Loratadine 10 MG TAB PO SCH (09:00)
[2022-01-12] MEDS ORDERED: Sodium Chloride 0.9% 1,000 ML IV SCH (09:15)
[2022-01-12] MEDS: OXcarbazepine 150 MG TAB PO SCH (10:29)
[2022-01-12] MEDS: Pantoprazole 40 MG VIAL IVP SCH (10:29)
[2022-01-12] MEDS: busPIRone HCl 10 MG TAB PO SCH ×2 (10:30→17:35)
[2022-01-12] MEDS: Timolol 0.5% Ophth Soln 5 ml Bottle EA EYE SCH (10:30)
[2022-01-12 13:03] VITALS: BP 162/95; TEMP 98.4
== END 2022-01-12 16:45 | DRG 640 ==
LOC: ERS 20:09 → ERHOLD 23:44 → 2NO 01-10 11:39 → T4-A 01-10 13:04 → 2NO 01-10 13:05 → OBSVTOIN 01-12 11:49
PROVIDERS: ADMIT Hospitalist; ATTEND Hospitalist
DX: E87.0 Hyperosmolality and hypernatremia (principal); G93.41 Metabolic encephalopathy; Z20.822 Contact with and (suspected) exposure to COVID-19; G30.9 Alzheimer's disease, unspecified; F02.80 Dementia in other diseases classified elsewhere, unspecified severity, without behavioral disturbance, psychotic disturbance, mood disturbance, and anxiety; E87.6 Hypokalemia; M81.0 Age-related osteoporosis without current pathological fracture; E78.5 Hyperlipidemia, unspecified; F32.A Depression, unspecified; Z88.1 Allergy status to other antibiotic agents; Z88.2 Allergy status to sulfonamides; Z87.440 Personal history of urinary (tract) infections; Z79.899 Other long term (current) drug therapy; Z98.890 Other specified postprocedural states
CPT/HCPCS: 36415; 70450; 80048; 80053; 80143; 80179; 80306; 81003; 81015; 82140; 83605; 83735; 84100; 84484; 85025; 87086; 93005; 96375; 96376; 80307; C9113; G0378; J3475; J3480; J7050; J7070; U0003; U0005

== ENCOUNTER 2022-06-06 05:50 | Emergency (ER) | payer MEDICARE ==
[2022-06-06] MEDS ORDERED: Bacitracin 1 PK ONE (08:35)
== END 2022-06-06 09:52 ==
LOC: ERS 05:50
DX: S00.11XA Contusion of right eyelid and periocular area, initial encounter (principal); E78.5 Hyperlipidemia, unspecified; N39.0 Urinary tract infection, site not specified; W06.XXXA Fall from bed, initial encounter; Z79.899 Other long term (current) drug therapy
CPT/HCPCS: 70450; 70486